=== PATIENT | female | born 1970 | race Caucasian/White ===

== ENCOUNTER 2024-10-01 00:15 | Emergency (ER) | payer BC, SELFPAY ==
[2024-10-01 00:20] VITALS: BP 145/77; PULSE 98; TEMP 37.2; O2SAT 97; BMI 22.8
--- NOTE | 2024-10-01 00:38 | ED.NAVMDI1 ---
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 The patient states she was feeling fine earlier in the night and after getting home from work she had sudden onset of nausea, multiple episodes of vomiting and multiple episodes of diarrhea. She has not had any recent travel out of the country. She has not had any fever. She has generalized abdominal pain and feels weak and miserable. She denies any chest pain or shortness of breath. Related Data Home Medications ?Medication ?Instructions ?Recorded ?Confirmed lifitegrast 5 % eye drops in a drp ophthalmic (eye) 10/01/24 dropperette (Xiidra) Allergies Allergy/AdvReac Type Severity Reaction Status Date / Time No Known Drug Allergies Allergy Verified 10/01/24 00:25 Review of Systems ROS Status of ROS 10 or more systems reviewed and unremarkable except as noted in history and below PFSH PFSH Social History Little interest or pleasure in doing things: not at all Feeling down, depressed, or hopeless: not at all Exam Narrative Exam Narrative: Vital signs and Nursing Notes reviewed: Patient is afebrile with a normal pulse, blood pressure is mildly elevated at 145/77, she is not hypoxic with pulse ox of 97% on room air General: Nontoxic but uncomfortable appearing middle-aged female, no respiratory distress, no active vomiting upon arrival HEENT: Normocephalic atraumatic, mucous membranes are dry Chest: Lungs are clear to auscultation with good air entry, there is no wheezing rhonchi or rales appreciated no accessory muscle use, patient is speaking in complete sentences-no chest wall tenderness to palpation CVS: Regular rate and rhythm S1-S2, no murmurs rubs or gallops, pulses are brisk and equal bilaterally ABD: Soft, generalized abdominal tenderness with no rebound guarding or rigidity Extremities: Moving all extremities, no lower extremity tenderness or swelling noted, negative Homans' sign, pulses are brisk and equal bilaterally Skin: Normal in appearance without rash,pallor, petechiae or purpura Neuro: No focal deficits Constitutional Vital Signs, click to edit/add: Last Vital Signs Temp 98.9 F 10/01/24 00:20 Pulse 98 H 10/01/24 00:20 Resp 20 10/01/24 00:20 BP 145/77 H 10/01/24 00:20 Pulse Ox 97 10/01/24 00:20 O2 Del Method Room Air 10/01/24 00:20 Course Vital Signs Vital signs: Vital Signs Temperature 98.9 F 10/01/24 00:20 Pulse Rate 98 H 10/01/24 00:20 Respiratory Rate 20 10/01/24 00:20 Blood Pressure 145/77 H 10/01/24 00:20 Pulse Oximetry 97 10/01/24 00:20 Oxygen Delivery Method Room Air 10/01/24 00:20 Temperature 98.9 F 10/01/24 00:20 Pulse Rate 98 H 10/01/24 00:20 Respiratory Rate 20 10/01/24 00:20 Blood Pressure 145/77 H 10/01/24 00:20 Pulse Oximetry 97 10/01/24 00:20 Oxygen Delivery Method Room Air 10/01/24 00:20 MDM - Nausea/Vomiting/Diarrhea MDM Narrative Medical decision making narrative: This 54-year-old female is brought to the emergency department by her for evaluation of acute onset of nausea vomiting and diarrhea after work today. 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 She was feeling fine earlier in the day and got home and suddenly began experiencing nausea with multiple episodes of vomiting and diarrhea with abdominal cramping prior to arrival. Upon arrival an IV was placed and she was medicated with IV fluids, IV Zofran, IV Pepcid, IV Toradol for her abdominal cramps and IM Valium. Routine labs are ordered and are reviewed. Her white count is elevated at 19.7 likely reflecting acute nausea and excessively forceful vomiting. She has a normal hemoglobin. Electrolytes and liver function tests are normal. Lipase is normal. Lactic acid is normal. On reevaluation she is resting comfortably and feeling better with decrease in her abdominal cramping and nausea. She will be given additional dose of IV fluids while in the emergency department. She has not had any diarrhea while in the emergency department. While receiving IV fluids she had several ice chips and started having some more cramping. She was remedicated with Zofran, Toradol and given IM Bentyl. She is overall much better and will be discharged home with a prescription for Lomotil to use as needed for ongoing diarrhea, Bentyl for cramps and Phenergan for refractory nausea and vomiting. Lab Data Labs: Lab Results 10/01/24 Range/Units 00:43 WBC 19.7 H (4.0-11.0) 10^3/uL RBC 4.48 (4.20-5.40) 10^6/uL Hgb 13.9 (12.0-16.0) g/dL Hct 41.8 (36.0-48.0) % MCV 93.3 (81.0-99.0) fL MCH 31.0 (26.7-34.0) pg MCHC 33.3 (29.9-35.2) g/dL RDW 13.9 (11.0-15.0) % Plt Count 327 (150-450) 10^3/uL MPV 9.7 (9.5-13.5) fL Seg Neuts % (Manual) 91.0 H (43.0-75.0) Lymphocytes % (Manual) 1.0 L (20.5-60.0) % Atypical Lymphs % (Man) 3.0 % Monocytes % (Manual) 5.0 (1.7-12.0) % Eosinophils % (Manual) 0.0 L (0.9-7.0) % Basophils % (Manual) 0.0 L (0.2-2.0) % Neutrophils # (Manual) 17.92 H (1.4-6.5) 10^3/uL Lymphocytes # (Manual) 0.19 L (1.20-3.80) 10^3/uL Abs Atypical Lymphs Man 0.59 Monocytes # (Manual) 0.98 H (0.30-0.80) 10^3/uL Eosinophils # (Manual) 0.00 (0.00-0.70) 10^3/uL Basophils # (Manual) 0.00 (0.00-0.10) 10^3/uL Sodium 141 (136-145) mmol/L Potassium 3.7 (3.5-5.1) mmol/L Chloride 104 (98-107) mmol/L Carbon Dioxide 23.2 (21.0-32.0) mmol/L Anion Gap 17.5 BUN 16.0 (7.0-18.0) mg/dL Creatinine 0.74 (0.55-1.02) mg/dL Est GFR ( Amer) >60 (>=60 mL/min/1.73m^2) Est GFR (Non-Af Amer) >60 (>=60 mL/min/1.73m^2) BUN/Creatinine Ratio 21.6 Glucose 132 H (74-106) mg/dL Lactate 1.2 (0.4-2.0) mmol/L Calcium 8.7 (8.5-10.1) mg/dL Total Bilirubin 1.1 H (0.2-1.0) mg/dL AST 14 L (15-37) U/L ALT 14 (14-59) U/L Alkaline Phosphatase 64 (46-116) U/L Total Protein 6.9 (6.4-8.2) g/dL Albumin 3.7 (3.4-5.0) g/dL Globulin 3.2 g/dL Albumin/Globulin Ratio 1.2 Lipase 57.0 (16.0-77.0) U/L Discharge Plan Discharge Chief Complaint: Nausea/Vomiting/Diarrhea Clinical Impression: Gastroenteritis Patient Disposition: Home, Self-Care Time of Disposition Decision: 04:39 Condition: Good Prescriptions / Home Meds: No Action Xiidra 5 % dropperette OPHTHALMIC (EYE) Print Language: Hungarian Instructions: Gastroenteritis (ED), Acute Nausea and Vomiting (ED), Acute Diarrhea (ED) Referrals: Physician,Non-Staff, MD [Primary Care Provider] - 1 week Discharge Date/Time: 10/01/24 04:55
[2024-10-01 00:47] LABS: Hematocrit 41.8 % (36.0-48.0); Hemoglobin 13.9 g/dL (12.0-16.0); Mean Corpuscular HGB Conc 33.3 g/dL (29.9-35.2); Mean Corpuscular Volume 93.3 fL (81.0-99.0); Mean Platelet Volume 9.7 fL (9.5-13.5); Platelet Count 327 10^3/uL (150-450); Red Blood Count 4.48 10^6/uL (4.20-5.40); Red Cell Distribution Width 13.9 % (11.0-15.0); White Blood Count 19.7 10^3/uL (4.0-11.0)
[2024-10-01] MEDS: 0.9 % SODIUM CHLORIDE 1,000 ML 1000 ML IV ×2 (00:55→01:58)
[2024-10-01] MEDS: ONDANSETRON PF 4 MG/2 ML VIAL IV ×2 (00:56→02:35)
[2024-10-01] MEDS: KETOROLAC TROMETHAMINE 30 MG/ML VIAL 15 MG IVP ×2 (00:56→03:51)
[2024-10-01] MEDS: FAMOTIDINE/PF 20 MG/2 ML VIAL IV (00:57)
[2024-10-01] MEDS: DIAZEPAM 10 MG/2 ML SYRINGE 5 MG IM (00:57)
[2024-10-01 01:00] LABS: Atypical Lymphocytes Abs Man 0.59; Lymphocytes Absolute Manual 0.19 10^3/uL (1.20-3.80); Monocytes Absolute Manual 0.98 10^3/uL (0.30-0.80); Segmented Neut Absolute Manual 17.92 10^3/uL (1.4-6.5)
[2024-10-01 01:05] LABS: Lactate/Lactic Acid 1.2 mmol/L (0.4-2.0)
[2024-10-01 01:18] LABS: Alanine Aminotransferase 14 U/L (14-59); Albumin Globulin Ratio 1.2; Albumin Level 3.7 g/dL (3.4-5.0); Alkaline Phosphatase 64 U/L (46-116); Anion Gap 17.5; Aspartate Amino Transferase 14 U/L (15-37); BUN Creatinine Ratio 21.6; Bilirubin Total 1.1 mg/dL (0.2-1.0); Calcium 8.7 mg/dL (8.5-10.1); Carbon Dioxide 23.2 mmol/L (21.0-32.0); Chloride 104 mmol/L (98-107); Estimated GFR (African America >60 (>=60 mL/min/1.73m^2); Estimated GFR (Non-African Ame >60 (>=60 mL/min/1.73m^2); Globulin 3.2 g/dL; Glucose 132 mg/dL (74-106); Potassium 3.7 mmol/L (3.5-5.1); Sodium 141 mmol/L (136-145); Total Protein 6.9 g/dL (6.4-8.2)
--- NOTE | 2024-10-01 01:36 | PC.NURSE ---
Care assumed from Radha WHITLEY.
[2024-10-01] MEDS: DEXTROSE 5%-LACTATED RINGERS 1,000 ML 100 ML IV (02:35)
[2024-10-01] MEDS: DICYCLOMINE HCL 20 MG/2 ML VIAL IM (03:51)
--- NOTE | 2024-10-01 03:57 | PC.NURSE ---
Pressure bag applied to D5LR as per MD request. Pt is tolerating fluid infusion well. No further emesis since prior to admission at the ED.
== END 2024-10-01 04:55 | disposition home or self-care (01) ==
PROVIDERS: Emergency Provider Emergency Medicine; Family Provider Family Medicine
DX: K52.9 Noninfective gastroenteritis and colitis, unspecified (principal); R10.84 Generalized abdominal pain
CPT/HCPCS: 36415; 80053; 83605; 83690; 85007; 85027; 96361; 96372; 96374; 96375; 96376; 99284; J0500; J1885; J2405; J3360